=== PATIENT | female | born 1945 | race African-American/Black ===

== ENCOUNTER → 2016-12-15 | Outpatient (CLI) | payer BC ==
--- NOTE | ~2016-12-15 | MY29 ---
[facility] A Service of [facility] / [facility] RADIOLOGY TEXT RESULTS PATIENT: MICKEY ALEMAN LOCATION: [facility] : 49 UNIT #: [id number] AGE: [address]: WANDER BEVERLY MD SEX: F ORDER DR: [id number] [place], [place] [address] [id number] MR#: [id number] Acc #: [id number] NAME: MICKEY ALEMAN : 1945 SEX: F STUDY DATE/TIME: 12/15/2016 14:07 UNIT: [facility] ROOM: STUDY DESCRIPTION: [facility] SCREENING W/ CAD BILAT Attending Physician: Wander Beverly M.D. Referring Physician: Wander Beverly M.D. Ordering Physician: Wnader Beverly M.D. Primary Care Physician: Wander Beverly M.D. MEDICAL IMAGING REPORT This report is preliminary unless electronic signature is present EXAM Digital screening mammogram with CAD INDICATIONS Routine screening. PROCEDURE Bilateral CC and MLO views obtained on a digital mammography unit FDA-approved CAD device was utilized. COMPARISON 11/29/2015 FINDINGS Scattered fibroglandular density. There is no dominant mass or suspicious calcification. IMPRESSION Negative screening mammogram screen interval in 1 year is suggested Patients over the age of 40 are entered into a reminder system with target due date for the next mammogram. A result letter will also be sent to the patient. BIRADS: 1, negative. Dictated by... Carlos Roberson M.D. THIS IS AN ELECTRONICALLY VERIFIED REPORT Carlos Roberson M.D. at 12/16/2016 7:12 AM EED/rnr [facility] A Service of [facility] / [facility] RADIOLOGY TEXT RESULTS PATIENT: MICKEY ALEMAN LOCATION: [facility] : 49 UNIT #: [id number] AGE: [address]: WANDER BEVERLY MD SEX: F ORDER DR: TD: 12/15/2016 20:21 JOB #: [id number] MEDICAL IMAGING REPORT Page 1 of 1 COPY
== END | disposition home or self-care (01) ==
LOC: CWCC 12-01 12:15
DX: Z12.31 Encounter for screening mammogram for malignant neoplasm of breast (principal)
CPT/HCPCS: G0202